=== PATIENT | female | born 1970 | race Caucasian/White ===

== ENCOUNTER 2018-07-20 08:55 | Emergency (ER) | payer OTHER ==
[~2018-07-20] VITALS: Ht 162.6 cm; Wt 78.9 kg
[2018-07-20] MEDS ORDERED: KETOROLAC TROMETHAMINE 60 MG/2 ML VIAL IM ONE (11:15)
[2018-07-20] MEDS ORDERED: ONDANSETRON HCL 4 MG ORAL DISINTEGRATING TAB PO ONE (11:15)
--- NOTE | 2018-07-20 12:34 | Diagnostic Imaging Report ---
History: Dizziness, unsteady gait. Neck pain Comparison studies: None Technique: Axial images were obtained from the skull base to the vertex. Coronal and sagittal reconstructions obtained from the axial data. Dose modulation, iterative reconstruction, and/or weight based adjustment of the mA/kV was utilized to reduce the radiation dose to as low as reasonably achievable. Findings: Scalp/skull: No abnormalities. No fractures, blastic or lytic lesions. Extra-axial spaces: No masses. No fluid collections. Brain sulci: Appropriate for age. Ventricles: Normal in size and configuration. No hydrocephalus. Parenchyma: Hyperdense mass with surrounding vasogenic edema measuring 1.7 x 1.8 x 1.7 cm (SI-AP-Trans) at the right frontal deep white matter. A second similar intra-axial hyperdense mass measuring 2.1 x 2.4 x 2.0 cm (SI-AP-Trans) is seen at the left pericentral/frontoparietal region with surrounding vasogenic edema. 0.7 cm right to left midline shift.. No acute or chronic cortical vascular insults. Sellar/suprasellar region: No abnormalities Craniocervical junction: Patent foramen magnum. No Chiari one malformation. IMPRESSION: 2 right frontal hyperdense intra-axial masses measuring up to 2.4 cm, with surrounding vasogenic edema and 0.7 cm left midline shift. Hyperdensity may suggest high cellularity or blood products. The primary diagnostic consideration is metastasis. The above finding was reported and acknowledged by Dr. Lombardi at 11:55 AM 07/20/2018 Signed by: DR Marcellus Heck M.D. on 07/20/2018 12:31 PM
[2018-07-20] MEDS ORDERED: DEXAMETHASONE SOD PHOS 10 MG/1 ML VIAL IV ONE (12:45)
[2018-07-20] MEDS ORDERED: TRADJENTA5 MG PO (13:06)
[2018-07-20] MEDS ORDERED: IRBESARTAN300 MG PO (13:06)
[2018-07-20] MEDS ORDERED: TRIAMTERENE-HCTZ1 EA PO (13:06)
[2018-07-20] MEDS ORDERED: METFORMIN HCL1000 MG PO (13:06)
[2018-07-20] MEDS ORDERED: CRESTOR20 MG PO (13:06)
[2018-07-20] MEDS ORDERED: AMLODIPINE BESY10 MG PO (13:06)
[2018-07-20 13:39] LABS: BASOPHILS # (AUTO) 0.1 (0.0-0.1); BASOPHILS % 0.3 % (0.0-1.0); EOSINOPHILS # (AUTO) 0.2 (0.0-0.4); EOSINOPHILS % 1.4 % (0.0-6.0); HEMATOCRIT 32.3 % (34.2-44.1); HEMOGLOBIN 10.6 g/dL (12.0-16.0); LYMPHOCYTES # (AUTO) 2.6 (1.0-3.2); LYMPHOCYTES % 16.3 % (18.0-39.1); MEAN CORPUSCULAR HEMOGLOBIN 30.1 pg (28-32); MEAN CORPUSCULAR HGB CONC 32.8 g/dL (31-35); MEAN CORPUSCULAR VOLUME 91.8 fL (81-99); MONOCYTES # (AUTO) 0.9 (0.2-0.8); MONOCYTES % 5.8 % (4.4-11.3); NEUTROPHILS # (AUTO) 11.9 (2.1-6.9); NEUTROPHILS % 75.8 % (38.7-80.0); PLATELET COUNT 738 x10e3/uL (140-360); RED BLOOD COUNT 3.52 x10e6/uL (3.6-5.1); RED CELL DISTRIBUTION WIDTH 13.6 % (11.7-14.4)
[2018-07-20] MEDS ORDERED: SODIUM CHLORIDE 0.9% 1000ML 1,000 ML IV SCH (13:54)
[2018-07-20] MEDS ORDERED: ONDANSETRON HCL INJ 2 MG/ML VIAL IV PRN (14:00)
[2018-07-20] MEDS ORDERED: MORPHINE SULFATE 2 MG/ML SYR IV PRN (14:00)
[2018-07-20 14:08] LABS: ALANINE AMINOTRANSFERASE 13 IU/L (0-55); ALBUMIN 3.8 g/dL (3.5-5.0); ALKALINE PHOSPHATASE 120 IU/L (40-150); ANION GAP 17.6 mmol/L (8-16); BLOOD UREA NITROGEN 12 mg/dL (7-26); BUN/CREATININE RATIO 14 (6-25); CALCIUM 10.5 mg/dL (8.4-10.2); CARBON DIOXIDE 25 mmol/L (22-29); CHLORIDE 95 mmol/L (98-107); CREATININE, SERUM 0.85 mg/dL (0.57-1.11); EST GLOMERULAR FILTRATION RATE > 60 ML/MIN (60-); GLUCOSE 104 mg/dL (74-118); POTASSIUM 3.6 mmol/L (3.5-5.1); SODIUM 134 mmol/L (136-145)
[2018-07-20 14:10] LABS: INR 0.86; PROTHROMBIN TIME 12.5 seconds (11.9-14.5)
[2018-07-20 14:11] LABS: PARTIAL THROMBOPLASTIN TIME 34.3 seconds (23.8-35.5)
[2018-07-20] MEDS ORDERED: MORPHINE SULFATE INJ 4 MG/ML INJ IV PRN (14:15)
--- OUTSIDE RECORDS SUMMARY | 2018-07-20 15:05 | XMS REPORT ---
Author Author [facility] Address Unknown Phone Unavailable Care Team Providers Care Environmental Services Floor Tech Name Role Phone Delmy MORRISSEY Unavailable Unavailable Problems This patient has no known problems. Allergies, Adverse Reactions, Alerts This patient has no known allergies or adverse reactions. Medications This patient has no known medications. Results Test Description Test Time Test Comments Text Results Atomic Results Result Comments CT BRAIN WO 2018-07-20 12:29:00 [facility] [address] [address] Patient Name: STACIE KURTZ MR #: [id number] : 1970 Age/Sex: 48/F Req #: [id number] Adm Physician: Ordered by: LEONCIO FUENTES NP Report #: [id number] Location: ER Room/Bed: Procedure: [id number] CT/CT BRAIN WO Exam Date: Exam Time: REPORT STATUS: Signed History: Dizziness, unsteady gait. Neck pain Comparison studies: None Technique: Axial images were obtained from the skull base to the vertex. Coronal and sagittal reconstructions obtained from the axial data. Dose modulation, iterative reconstruction, and/or weight based adjustment of the mA/kV was utilized to reduce the radiation dose to as low as reasonably achievable. Findings: Scalp/skull: No abnormalities. No fractures, blastic or lytic lesions. Extra-axial spaces: No masses. No fluid collections. Brain sulci: Appropriate for age. Ventricles: Normal in size and configuration. No hydrocephalus. Parenchyma: Hyperdense mass with surrounding vasogenic edema measuring 1.7 x 1.8 x 1.7 cm (SI-AP-Trans) at the right frontal deep white matter. A second similar intra-axial hyperdense mass measuring 2.1 x 2.4 x 2.0 cm (SI-AP-Trans) is seen at the left pericentral/frontoparietal region with surrounding vasogenic edema. 0.7 cm right to left midline shift.. No acute or chronic cortical vascular insults. Sellar/suprasellar region: No abnormalities Craniocervical junction: Patent foramen magnum. No Chiari one malformation. IMPRESSION: 2 right frontal hyperdense intra-axial masses measuring up to 2.4 cm, with surrounding vasogenic edema and 0.7 cm left midline shift. Hyperdensity may suggest high cellularity or blood products. The primary diagnostic consideration is metastasis. The above finding was reported and acknowledged by Dr. Morrissey at 11:55 AM 07/20/2018 Signed by: DR Marcellus Heck M.D. on 07/20/2018 12:31 PM Dictated By: MARCELLUS LUNDBERG MD [id number] Transcribed By: RON on 07/20/18 1231 COPY TO: LEONCIO FUENTES NP
--- NOTE | 2018-07-20 17:40 | Diagnostic Imaging Report ---
History: Neck pain Comparison studies: None Technique: Axial images were obtained through the cervical region.. Coronal and sagittal images reconstructed from the axial data. Dose modulation, iterative reconstruction, and/or weight based adjustment of the mA/kV was utilized to reduce the radiation dose to as low as reasonably achievable. Intravenous contrast: None Findings: Fractures: None. Soft tissues: No gross abnormalities. Atlantoaxial articulation: Intact. Alignment: Straightening of the usual lordosis.. No scoliosis. Cervicomedullary junction: No abnormalities. The foramen magnum is patent. Vertebrae: No infection or neoplasm. Degenerative changes: Focal calcification of the annulus at C3-4. Mildly degenerated disc, mild spinal canal stenosis and mild bilateral bilateral foraminal stenosis at C5-6 due to facet and uncovertebral arthrosis and to a disc osteophyte complex. IMPRESSION: 1. No acute abnormalities. 2. Cannot adequately evaluate for ligament, spinal cord and or vascular abnormalities. 3. Mild degenerative changes as described. Additional findings: Confluent spiculated opacities in the lung apices, right greater than left, deserve further evaluation with either a chest x-ray or chest CT. Signed by: Dr. Mike Belcher M.D. on 07/20/2018 5:37 PM
[2018-07-20] MEDS ORDERED: DEXAMETHASONE SOD PHOS INJ 4 MG/ML VIAL IV SCH (18:00)
--- NOTE | 2018-07-21 01:20 | Discharge Summary ---
PRINCIPAL DIAGNOSES 1. Brain masses in right frontal region. 2. Vasogenic edema secondary to brain mass. 3. Left-sided brain shift secondary to brain mass. 4. Spiculated lung lesion in the apices. 5. Hypercalcemia. 6. Overweight state. 7. Cigarette use. 8. Hypertension. 9. Diabetes mellitus. SECONDARY DIAGNOSIS: Diabetes mellitus. CHIEF COMPLAINT: Left-sided weakness. HISTORY OF PRESENT ILLNESS: Please refer to [facility]. HOSPITAL COURSE: Patient found to have the brain masses and associated findings as noted above. Transferred to [place] for surgical management. DISCHARGE MEDICATIONS: Per electronic medical records and per medical team and neurosurgery at [facility]. CONDITION ON DISCHARGE: Stable. LARRY ALMEIDA MD Job#: [id number] CQ
--- NOTE | 2018-07-21 02:02 | History and Physical ---
PRIMARY CARE PHYSICIAN: Dr. Joe CHIEF COMPLAINT: Left arm numbness. HISTORY OF PRESENT ILLNESS: This is a 48-year-old woman with the history of breast cancer in 2011, now developing left arm weakness and numbness and left-sided numbness with sensation of pulsation in the left arm and having difficulty controlling left arm at times and dropping objects. This has been ongoing for about 2 weeks. She went to see her primary care doctor, Dr. Joe, whose nurse practitioner ordered a cervical neck x-ray. Patient also has been having headache, which has been ongoing for 5 days. She came to the hospital. Her symptoms have worsened. Here, she was found to have brain lesions, suggestive of metastatic disease. She was admitted for further evaluation and management. Denies any nausea, vomiting, diarrhea. Denies any other symptoms. PAST MEDICAL HISTORY: Hypertension, diabetes mellitus, breast cancer diagnosed in June 2012, status post right mastectomy, cigarette use, headache. PAST SURGICAL HISTORY: Right mastectomy in March 2013. ALLERGIES: PER ELECTRONIC MEDICAL RECORD. FAMILY HISTORY/SOCIAL HISTORY: Patient is single. She has no children. She smokes 1/2 pack of cigarettes per day. MEDICATIONS: Per electronic medical record. REVIEW OF SYSTEMS: Denies any dizziness, chest pain, shortness of breath, fevers, chills, sweats, nausea, vomiting, diarrhea, headache, vision changes, leg pain. PHYSICAL EXAMINATION VITAL SIGNS: Reviewed. GENERAL: Tired-appearing woman resting in bed. HEENT: Anicteric. CARDIOVASCULAR: Normal S1, S2. LUNGS: Moderate breath sounds. ABDOMEN: Soft, nontender, nondistended. EXTREMITIES: No edema or calf tenderness. NEUROLOGIC: Awake, alert, oriented x3, moves extremities. SKIN: Dry. PSYCHIATRIC: Flat affect. LABS: Reviewed. MEDICATIONS: Reviewed. ASSESSMENT AND PLAN: This is a 48-year-old woman. 1. Brain masses in the right frontal region measuring up to 2.4 cm. 2. Vasogenic edema associated with brain masses. 3. Left midline brain shift secondary to brain masses. 4. Spiculated opacities in the bilateral lung apices. 5. Leukocytosis, which is secondary to malignancy. 6. Normocytic anemia, which is moderate. 7. Hypercalcemia. 8. Overweight state. Body mass index 29.9. 9. History of right-sided breast cancer. 10. Diabetes mellitus. 11. Cigarette use. 12. Hypertension. PLAN 1. Neurosurgery consultation. 2. Dexamethasone. 3. Will need to be transferred to [place] for surgical management. 4. Will need CT scan of the chest with contrast to evaluate spiculated lesion in the apical regions of the lungs. 5. Obtain hemoglobin A1c and lipid panel. 6. I have discussed case with patient and family at bedside and educated on the findings of the studies. 7. Prophylaxis, will use Pepcid and SCD. DISPOSITION: Monitor closely. Transfer to [place]. Plan for neurosurgery evaluation. Job#: [id number] CQ
== END 2018-07-20 20:28 | disposition short-term general hospital (02) ==
LOC: ER 08:55 → UNDOADMIN 15:01 → ERHOLD 15:01 → ER 20:28
DX: M54.2 Cervicalgia (principal); S41.131A Puncture wound without foreign body of right upper arm, initial encounter; R22.0 Localized swelling, mass and lump, head; I10 Essential (primary) hypertension; E11.9 Type 2 diabetes mellitus without complications; Z85.3 Personal history of malignant neoplasm of breast; F17.210 Nicotine dependence, cigarettes, uncomplicated
CPT/HCPCS: 36415; 70450; 72125; 80053; 85025; 85610; 85730; 99284; J1100 ×2; J1885; J7030; Q0162